=== PATIENT | male | born 1960 | race Caucasian/White ===

== ENCOUNTER 2020-02-03 10:28 | Emergency (ER) | payer OTHER ==
[2020-02-03] MEDS ORDERED: Sodium Chloride 0.9% 10 ML Syringe FLUSH PRN (11:07)
--- NOTE | 2020-02-03 11:35 | CR ---
Chest: Portable upright view of the chest was obtained. Comparison: No previous chest x-ray is available. Heart size and mediastinum are normal. Lungs show no acute parenchymal change. Minimal linear density is seen with left base most likely due to slight scarring. Bony structures appear within normal limits for the patient's age. Impression: 1. Nothing acute is appreciated. Diagnostic code #2
--- NOTE | 2020-02-03 12:19 | EDM.PDOC ---
<Yasmine Oscar M - Last Filed: 02/03/20 12:28> ED HPI GENERAL MEDICAL PROBLEM - General Chief Complaint: Chest Pain Stated Complaint: L ARM AND CHEST PAIN Time Seen by Provider: 02/03/20 10:55 Source of Information: Reports: Patient History Limitations: Reports: No Limitations - History of Present Illness INITIAL COMMENTS - FREE TEXT/NARRATIVE: 59-year-old male presents to the emergency department with complaints of chest pressure and left arm numbness. Patient states [facility] this this morning and they did send him over here to the emergency department. He reports a history of COPD and congestive heart failure however does not take any medications for these. States he woke up this morning with some chest "tightness ", and left arm numbness. He reports that he does have some shoulder issues bilaterally and does frequently have numbness down both arms however it just seemed different this morning. Also reports sleeping on his left side last night. He denies shortness of breath, cough, fever, chills, nausea, vomiting, or any diaphoresis. States he has a history of vertigo and did feel a little bit dizzy this morning. Onset: Today Chest Pain Score (Numeric/FACES): 1 - Related Data Allergies Allergy/AdvReac Type Severity Reaction Status Date / Time No Known Allergies Allergy Verified 02/03/20 10:45 Past Medical History Cardiovascular History: Reports: High Cholesterol Respiratory History: Reports: Asthma, COPD, Sleep Apnea Gastrointestinal History: Reports: GERD Musculoskeletal History: Reports: Osteoarthritis, Other (See Below) Other Musculoskeletal History: herniated disks Social & Family History - Tobacco Use Tobacco Use Status *Q: Never Tobacco User ED ROS GENERAL - Review of Systems Review Of Systems: See Below Constitutional: Reports: No Symptoms. Denies: Fever, Chills, Malaise, Diaphoresis HEENT: Reports: No Symptoms Respiratory: Reports: No Symptoms. Denies: Shortness of Breath, Wheezing, Cough, Sputum Cardiovascular: Reports: Chest Pain (Patient describes it as chest pressure.). Denies: Dyspnea on Exertion, Edema, Lightheadedness, Orthopnea, Palpitations, Syncope Endocrine: Reports: No Symptoms GI/Abdominal: Reports: No Symptoms Musculoskeletal: Reports: Arm Pain (Left 4 arm numbness and tingling) Skin: Reports: No Symptoms Neurological: Reports: No Symptoms, Numbness, Tingling (Left forearm) Psychiatric: Reports: No Symptoms Hematologic/Lymphatic: Reports: No Symptoms Immunologic: Reports: No Symptoms ED EXAM, GENERAL - Physical Exam Exam: See Below Exam Limited By: No Limitations General Appearance: Alert, WD/WN, No Apparent Distress Eye Exam: Bilateral Eye: PERRL Ears: Hearing Grossly Normal Nose: Normal Inspection Throat/Mouth: Normal Inspection, Normal Voice, No Airway Compromise Head: Atraumatic, Normocephalic Neck: Normal Inspection, Supple, Non-Tender, Full Range of Motion Respiratory/Chest: No Respiratory Distress, Lungs Clear, Normal Breath Sounds, No Accessory Muscle Use, Chest Non-Tender Cardiovascular: Normal Peripheral Pulses, Regular Rate, Rhythm, No Edema, No Murmur Peripheral Pulses: 2+: Radial (L), Radial (R) GI/Abdominal: Normal Bowel Sounds, Soft, Non-Tender, No Distention (Male) Exam: Deferred Rectal (Males) Exam: Deferred Back Exam: Normal Inspection, Full Range of Motion Extremities: Normal Inspection, Normal Range of Motion, Non-Tender, No Pedal Edema, Normal Capillary Refill Neurological: Alert, Oriented, Normal Cognition, No Motor/Sensory Deficits Psychiatric: Normal Affect, Normal Mood Skin Exam: Warm, Dry, Intact, Normal Color, No Rash Lymphatic: No Adenopathy #1 Interpretation EKG Date: 02/03/20 Time: 10:38 Rhythm: NSR Rate (Beats/Min): 70 Rosalia: Normal P-Wave: Present QRS: Normal ST-T: Normal QT: Normal EKG Interpretation Comments: KG interpretation Per Dr. Moreno: Q waves in V2, no ST elevation or depression. Course - Vital Signs Text/Narrative:: 59-year-old male presents to the ER with complaints of chest heaviness and left arm numbness and tingling. Patient states he woke up with the chest heaviness this morning. He does report a history of COPD, and congestive heart failure however he does not take medications for either of these. He states he does not like to take medications. States he did feel dizzy this morning as well however does carry history of vertigo. Patient denies nausea, vomiting, shortness of breath, cough, fever, chills, or diaphoresis. States he does have a history of some shoulder issues where he does have numbness and tingling that frequently runs down both arms. However he states that this morning it just felt different. States he did sleep on his left side last night. - Radiology Interpretation Free Text/Narrative:: Portable chest x-ray impression: Nothing acute is appreciated on portable chest x-ray. - Re-Assessments/Exams Free Text/Narrative Re-Assessment/Exam: 02/03/20 12:25 CBC reveals a WBC 9.27, neutrophil percentage 77.4, CMP essentially unremarkable, troponin less than 0.017. Departure - Departure Time of Disposition: 12:26 Disposition: Home, Self-Care 01 Condition: Good Clinical Impression: Atypical chest pain Instructions: Nonspecific Chest Pain, Adult, [id number] Referrals: Sury Pearce MD [Primary Care Provider] - Forms: ED Department Discharge Additional Instructions: You are seen in the emergency department today with complaints of chest pressure and left arm numbness and tingling. Chest x-ray was unremarkable, EKG was unremarkable, all lab work was unremarkable. Please go home and rest. Follow- up with your primary care provider as needed. Please return to the emergency department should your condition worsen or change. Sepsis Event Note (ED) - Evaluation Sepsis Screening Result: No Definite Risk <Delano Moreno - Last Filed: 02/03/20 18:57> Course - Vital Signs Last Recorded V/S: Last Vital Signs Temp 98.1 F 02/03/20 10:41 Pulse 74 02/03/20 10:41 Resp 16 02/03/20 10:41 BP 127/98 H 02/03/20 10:41 Pulse Ox 100 02/03/20 10:41 - Orders/Labs/Meds Orders: Active Orders 24 hr Category Date Time Status Saline Lock Insert [OM.PC] Routine Oth 02/03/20 11:07 Ordered Labs: Laboratory Tests 02/03/20 02/03/20 Range/Units 11:14 11:14 WBC 9.27 H (4.23-9.07) K/mm3 RBC 5.25 (4.63-6.08) M/mm3 Hgb 14.9 (13.7-17.5) gm/dl Hct 44.7 (40.1-51.0) % MCV 85.1 (79.0-92.2) fl MCH 28.4 (25.7-32.2) pg MCHC 33.3 (32.2-35.5) g/dl RDW Std Deviation 40.4 (35.1-43.9) fL Plt Count 324 (163-337) K/mm3 MPV 9.7 (9.4-12.3) fl Neut % (Auto) 77.4 H (34.0-67.9) % Lymph % (Auto) 15.0 L (21.8-53.1) % Stanley % (Auto) 6.3 (5.3-12.2) % Eos % (Auto) 1.1 (0.8-7.0) Baso % (Auto) 0.1 (0.1-1.2) % Neut # (Auto) 7.18 H (1.78-5.38) K/mm3 Lymph # (Auto) 1.39 (1.32-3.57) K/mm3 Stanley # (Auto) 0.58 (0.30-0.82) K/mm3 Eos # (Auto) 0.10 (0.04-0.54) K/mm3 Baso # (Auto) 0.01 (0.01-0.08) K/mm3 Sodium 140 (136-145) mEq/L Potassium 4.9 (3.5-5.1) mEq/L Chloride 106 (98-107) mEq/L Carbon Dioxide 26 (21-32) mEq/L Anion Gap 12.9 (5-15) BUN 13 (7-18) mg/dL Creatinine 1.1 (0.7-1.3) mg/dL Est Cr Clr Drug Dosing TNP Estimated GFR (MDRD) > 60 (>60) mL/min BUN/Creatinine Ratio 11.8 L (14-18) Glucose 92 (74-106) mg/dL Calcium 9.5 (8.5-10.1) mg/dL Magnesium 2.0 (1.8-2.4) mg/dl Total Bilirubin 0.4 (0.2-1.0) mg/dL AST 16 (15-37) U/L ALT 17 (16-63) U/L Alkaline Phosphatase 75 (46-116) U/L Troponin I < 0.017 (0.00-0.056) ng/mL Total Protein 7.2 (6.4-8.2) g/dl Albumin 4.1 (3.4-5.0) g/dl Globulin 3.1 gm/dL Albumin/Globulin Ratio 1.3 (1-2) Meds: Medications Discontinued Medications Generic Name Dose Route Start Last Admin Trade Name Freq PRN Reason Stop Dose Admin Sodium Chloride 10 ml 02/03/20 11:07 Saline Flush FLUSH ASDIRECTED PRN Keep Vein Open - Re-Assessments/Exams Free Text/Narrative Re-Assessment/Exam: 02/03/20 18:55 I have also interviewed patient, sx and findings discussed with MORIAH Trevino, I agree with hx and exam as documented. Sepsis Event Note (ED) - Focused Exam Vital Signs: Vital Signs Temp Pulse Resp BP Pulse Ox 02/03/20 10:41 98.1 F 74 16 127/98 H 100
== END 2020-02-03 12:59 | disposition home or self-care (01) ==
LOC: JD.ED 10:28
DX: R07.89 Other chest pain (principal); J44.9 Chronic obstructive pulmonary disease, unspecified; I50.9 Heart failure, unspecified; Z79.899 Other long term (current) drug therapy
CPT/HCPCS: 36415; 71045; 71045-26; 80053; 83735; 84484; 85025; 93005; 93010; 99284; 99285-25